=== PATIENT | male | born 1980 | race African-American/Black ===

== ENCOUNTER 2016-12-04 10:03 | Emergency (ER) | payer MEDICARE, MEDICAID ==
[~2016-12-04] VITALS: Ht 170.2 cm; Wt 95.0 kg
[2016-12-04] MEDS ORDERED: RISP4 PO (10:11)
[2016-12-04] MEDS ORDERED: BENZ1TAB10 PO (10:11)
[2016-12-04] MEDS ORDERED: QUET200T PO (10:11)
[2016-12-04] MEDS ORDERED: QUEtiapine FUMARATE 100 MG TABLET PO ONE (12:00)
[2016-12-04] MEDS ORDERED: BENZTROPINE MESYLATE 1 MG TABLET PO ONE (12:00)
[2016-12-04] MEDS ORDERED: RisperiDONE 1 MG TABLET PO ONE (12:00)
[2016-12-04 12:20] VITALS: BP 147/90
== END 2016-12-04 13:25 | disposition home or self-care (01) ==
LOC: EMS 10:06
DX: Z76.0 Encounter for issue of repeat prescription (principal); F20.9 Schizophrenia, unspecified; F17.210 Nicotine dependence, cigarettes, uncomplicated
CPT/HCPCS: 99284

== ENCOUNTER 2016-12-23 15:45 | Inpatient (IN) | payer MEDICARE, MEDICAID ==
[~2016-12-23] VITALS: Ht 170.2 cm; Wt 91.6 kg
[~2016-12-23 15:45] MED LIST: BENZ1TAB10 PO; QUET200T PO; RISP4 PO
[2016-12-23 20:17] VITALS: BP 127/87
[2016-12-23 21:31] VITALS: BP 132/91
[2016-12-24 05:34] VITALS: BP 110/75
[2016-12-24 08:00] VITALS: BP 117/77
[2016-12-24 08:45] LABS: BASOPHILS % (AUTO) 0.4 % (0.0-2.0); EOSINOPHILS % (AUTO) 1.2 % (1.0-6.0); HEMATOCRIT 39.7 % (41-53); HEMOGLOBIN 13.5 g/dL (13.5-17.5); LYMPHOCYTES # (AUTO) 1.7 K/uL (1.0-4.8); LYMPHOCYTES % (AUTO) 20.6 % (22.0-44.0); MEAN CORPUSCULAR HEMOGLOBIN 29.4 pg (26.0-34.0); MEAN CORPUSCULAR HGB CONC 34.1 G/dL (31.0-37.0); MEAN CORPUSCULAR VOLUME 86 fL (80-100); MONOCYTES # (AUTO) 0.5 K/uL (0.1-1.0); NEUTROPHILS % (AUTO) 71.8 % (40.0-70.0); PLATELET COUNT (AUTO) 248 K/uL (150-450); RED CELL DISTRIBUTION WIDTH 14.1 % (11.5-14.5); WHITE BLOOD COUNT (AUTO) 8.4 K/uL (4.5-11.0)
[2016-12-24 08:50] LABS: HEMOGLOBIN A1C 5.4 % (4.5-6.2)
[2016-12-24 09:05] LABS: ALANINE AMINOTRANSFERASE 53 U/L (12-78); ALBUMIN 3.9 g/dL (3.4-5.0); ANION GAP 10 mmol/L (8-16); ASPARTATE AMINOTRANSFERASE 35 U/L (15-37); BILIRUBIN,TOTAL 0.4 mg/dL (0.1-1.0); CARBON DIOXIDE 25 mmol/L (22-29); CHLORIDE 108 mmol/L (98-107); CHOL/HDL RATIO 6.3 (4.2-7.3); CREATININE 0.96 mg/dL (0.60-1.30); GLOMERULAR FILTR. RATE CALC > 60 mL/min (>60); POTASSIUM 4.4 mmol/L (3.5-5.1); SODIUM SERUM 143 mmol/L (136-145); THYROID STIMULATING HORMONE 0.45 uIU/mL (0.36-3.74); TOTAL PROTEIN, SERUM 6.9 g/dL (6.4-8.2); UREA NITROGEN, BLOOD 11 mg/dL (7-18)
[2016-12-24 16:00] VITALS: BP 130/88
[2016-12-24] MEDS: LORazepam 2 MG TABLET PO PRN (17:56)
[2016-12-24] MEDS: ZOLPIDEM TARTRATE 10 MG TABLET PO PRN (20:24)
[2016-12-24] MEDS: RisperiDONE 0.5 MG TABLET PO SCH (20:48)
[2016-12-25 06:29] VITALS: BP 132/79
[2016-12-25] MEDS: RisperiDONE 0.5 MG TABLET PO SCH ×2 (08:26→16:13)
[2016-12-25] MEDS: LORazepam 2 MG TABLET PO PRN ×4 (08:26→20:28)
[2016-12-25 08:36] VITALS: BP 135/82
[2016-12-25 09:41] LABS: HEMOGLOBIN A1C 5.3 % (4.5-6.2)
[2016-12-25 09:42] LABS: CHOL/HDL RATIO 5.7 (4.2-7.3); THYROID STIMULATING HORMONE 1.34 uIU/mL (0.36-3.74)
[2016-12-25 16:00] VITALS: BP 138/88
[2016-12-25] MEDS: ZOLPIDEM TARTRATE 10 MG TABLET PO PRN (20:28)
[2016-12-26 06:41] VITALS: BP 122/78
[2016-12-26 07:55] LABS: HEPATITIS Bs ANTIGEN SCREEN P Negative (Negative); HEPATITIS C AB SCREEN <0.1 s/co ratio (0.0-0.9)
[2016-12-26] MEDS ORDERED: LORazepam 2 MG/ML VIAL IM ONE (08:00)
[2016-12-26] MEDS ORDERED: DiphenhydrAMINE HCL 50 MG/ML VIAL IM ONE (08:00)
[2016-12-26] MEDS ORDERED: HALOPERIDOL LACTATE 5 MG/ML VIAL IM ONE (08:00)
[2016-12-26] MEDS ORDERED: HALOPERIDOL LACTATE 5 MG/ML VIAL ONE (08:01)
[2016-12-26] MEDS ORDERED: LORazepam 2 MG/ML VIAL ONE (08:01)
[2016-12-26] MEDS ORDERED: DiphenhydrAMINE HCL 50 MG/ML VIAL ONE (08:01)
[2016-12-26 08:30] VITALS: BP 137/72
[2016-12-26] MEDS ORDERED: RisperiDONE 1 MG TABLET PO SCH (09:00)
[2016-12-26] MEDS: HALOPERIDOL 5 MG TABLET PO SCH (16:29)
[2016-12-26] MEDS: LORazepam 2 MG TABLET PO PRN (20:40)
[2016-12-26] MEDS: NICOTINE 14 MG/24 HOUR PATCH TD SCH (20:41)
[2016-12-26] MEDS: ZOLPIDEM TARTRATE 10 MG TABLET PO PRN (20:42)
[2016-12-26 20:49] VITALS: BP 128/85
[2016-12-27 08:00] VITALS: BP 143/62
[2016-12-27] MEDS: NICOTINE 14 MG/24 HOUR PATCH TD SCH (08:18)
[2016-12-27] MEDS: LORazepam 2 MG TABLET PO PRN (08:19)
[2016-12-27] MEDS: HALOPERIDOL 5 MG TABLET PO SCH ×2 (08:19→16:07)
[2016-12-27 17:12] VITALS: BP 120/63
[2016-12-27] MEDS: ZOLPIDEM TARTRATE 10 MG TABLET PO PRN (21:20)
[2016-12-28] MEDS: LORazepam 2 MG TABLET PO PRN ×3 (02:30→17:08)
[2016-12-28 03:07] VITALS: BP 124/74
[2016-12-28 08:10] VITALS: BP 143/70
[2016-12-28] MEDS: NICOTINE 14 MG/24 HOUR PATCH TD SCH (09:20)
[2016-12-28] MEDS: HALOPERIDOL 5 MG TABLET PO SCH (09:20)
[2016-12-28] MEDS: HALOPERIDOL 10 MG TABLET PO SCH (16:24)
[2016-12-28 16:31] VITALS: BP 117/68
[2016-12-29] MEDS: ZOLPIDEM TARTRATE 10 MG TABLET PO PRN ×2 (00:46→20:06)
[2016-12-29 01:02] VITALS: BP 131/86
[2016-12-29 08:05] VITALS: BP 122/79
[2016-12-29] MEDS: LORazepam 2 MG TABLET PO PRN ×2 (08:16→23:40)
[2016-12-29] MEDS: NICOTINE 14 MG/24 HOUR PATCH TD SCH (08:16)
[2016-12-29] MEDS: HALOPERIDOL 10 MG TABLET PO SCH ×2 (08:17→16:21)
[2016-12-29 19:57] VITALS: BP 115/68
[2016-12-29 23:30] VITALS: BP 129/67
[2016-12-30 08:00] VITALS: BP 101/64
[2016-12-30] MEDS: HALOPERIDOL 10 MG TABLET PO SCH ×2 (09:04→17:35)
[2016-12-30] MEDS: NICOTINE 14 MG/24 HOUR PATCH TD SCH (09:04)
[2016-12-30] MEDS ORDERED: GuaiFENesin [SUGAR-FREE] 200 MG/10 ML SOLUTION UDCUP PO PRN (09:15)
[2016-12-30 16:49] VITALS: BP 140/87
[2016-12-30] MEDS: DIVALPROEX SODIUM 500 MG ER TABLET PO SCH (17:34)
[2016-12-30] MEDS: LORazepam 2 MG TABLET PO PRN (17:35)
[2016-12-31 07:12] LABS: BASOPHILS # (AUTO) 0.06 K/uL (0.00-0.20); BASOPHILS % (AUTO) 0.9 % (0.0-2.0); EOSINOPHILS # (AUTO) 0.19 K/uL (0.00-0.70); EOSINOPHILS % (AUTO) 2.72 % (1.0-6.0); HEMATOCRIT 39.5 % (41-53); HEMOGLOBIN 13.7 g/dL (13.5-17.5); LYMPHOCYTES # (AUTO) 1.8 K/uL (1.0-4.8); LYMPHOCYTES % (AUTO) 25.8 % (22.0-44.0); MEAN CORPUSCULAR HEMOGLOBIN 29.5 pg (26.0-34.0); MEAN CORPUSCULAR HGB CONC 34.6 G/dL (31.0-37.0); MEAN CORPUSCULAR VOLUME 85 fL (80-100); MONOCYTES # (AUTO) 1.1 K/uL (0.1-1.0); MONOCYTES % (AUTO) 16.1 % (2.0-9.0); NEUTROPHILS # (AUTO) 3.8 K/uL (1.8-7.7); NEUTROPHILS % (AUTO) 54.5 % (40.0-70.0); PLATELET COUNT (AUTO) 223 K/uL (150-450); RED BLOOD CELL COUNT(AUTO) 4.63 MIL/uL (4.50-5.90); RED CELL DISTRIBUTION WIDTH 13.6 % (11.5-14.5); WHITE BLOOD COUNT (AUTO) 6.9 K/uL (4.5-11.0)
[2016-12-31 07:33] LABS: ALANINE AMINOTRANSFERASE 40 U/L (12-78); ALBUMIN 3.4 g/dL (3.4-5.0); ANION GAP 6 mmol/L (8-16); ASPARTATE AMINOTRANSFERASE 21 U/L (15-37); BILIRUBIN,TOTAL 0.2 mg/dL (0.1-1.0); CALCIUM, TOTAL 8.9 mg/dL (8.8-10.5); CARBON DIOXIDE 29 mmol/L (22-29); CHLORIDE 105 mmol/L (98-107); GLOMERULAR FILTR. RATE CALC > 60 mL/min (>60); POTASSIUM 4.3 mmol/L (3.5-5.1); SODIUM SERUM 140 mmol/L (136-145); UREA NITROGEN, BLOOD 9 mg/dL (7-18); VALPROIC ACID 21 mcg/mL (50-100)
[2016-12-31 08:00] VITALS: BP 126/81
[2016-12-31] MEDS: NICOTINE 14 MG/24 HOUR PATCH TD SCH (08:15)
[2016-12-31] MEDS: DIVALPROEX SODIUM 500 MG ER TABLET PO SCH ×2 (08:15→16:23)
[2016-12-31] MEDS: HALOPERIDOL 10 MG TABLET PO SCH ×2 (08:15→16:23)
[2016-12-31 16:43] VITALS: BP 120/72
[2016-12-31] MEDS: LORazepam 2 MG TABLET PO PRN (19:21)
[2016-12-31] MEDS: ZOLPIDEM TARTRATE 10 MG TABLET PO PRN (20:27)
[2017-01-01 08:00] VITALS: BP 124/87
[2017-01-01] MEDS: HALOPERIDOL 10 MG TABLET PO SCH ×2 (08:37→16:20)
[2017-01-01] MEDS: DIVALPROEX SODIUM 500 MG ER TABLET PO SCH ×2 (08:38→16:20)
[2017-01-01] MEDS: NICOTINE 14 MG/24 HOUR PATCH TD SCH (08:38)
[2017-01-01] MEDS: LORazepam 2 MG TABLET PO PRN (12:19)
[2017-01-01] MEDS: ZOLPIDEM TARTRATE 10 MG TABLET PO PRN (21:03)
[2017-01-02] MEDS: LORazepam 2 MG TABLET PO PRN ×3 (03:45→17:44)
[2017-01-02 05:00] VITALS: BP 128/84
[2017-01-02 07:21] LABS: CREATINE KINASE MB 0.9 ng/mL (0-5); CREATINE KINASE, TOTAL 322 U/L (39-308)
[2017-01-02 09:00] VITALS: BP 119/82
[2017-01-02] MEDS: HALOPERIDOL 10 MG TABLET PO SCH ×2 (09:25→17:44)
[2017-01-02] MEDS: DIVALPROEX SODIUM 500 MG ER TABLET PO SCH ×2 (09:25→17:44)
[2017-01-02] MEDS: NICOTINE 14 MG/24 HOUR PATCH TD SCH (09:25)
[2017-01-02 16:00] VITALS: BP 143/63
[2017-01-02] MEDS: ZOLPIDEM TARTRATE 10 MG TABLET PO PRN (21:55)
[2017-01-03] MEDS: HALOPERIDOL 10 MG TABLET PO SCH ×2 (08:07→16:53)
[2017-01-03] MEDS: LORazepam 2 MG TABLET PO PRN ×2 (08:07→16:53)
[2017-01-03] MEDS: DIVALPROEX SODIUM 500 MG ER TABLET PO SCH ×2 (08:07→16:52)
[2017-01-03] MEDS: NICOTINE 14 MG/24 HOUR PATCH TD SCH (08:08)
[2017-01-03 08:30] VITALS: BP 96/53
[2017-01-03 16:00] VITALS: BP 124/90
[2017-01-03] MEDS: ZOLPIDEM TARTRATE 10 MG TABLET PO PRN (21:10)
[2017-01-04] MEDS: LORazepam 2 MG TABLET PO PRN ×2 (03:01→15:41)
[2017-01-04] MEDS: HALOPERIDOL 10 MG TABLET PO SCH ×2 (08:20→16:28)
[2017-01-04] MEDS: DIVALPROEX SODIUM 500 MG ER TABLET PO SCH ×2 (08:20→16:28)
[2017-01-04] MEDS: NICOTINE 14 MG/24 HOUR PATCH TD SCH (09:00)
[2017-01-04 09:09] VITALS: BP 124/90
[2017-01-04] MEDS ORDERED: DIVA500T52 PO (16:18)
[2017-01-04] MEDS ORDERED: HALO10 PO (16:19)
[2017-01-04 16:32] VITALS: BP 119/79
== END 2017-01-04 17:30 | disposition home or self-care (01) | DRG 885 ==
LOC: B3A 20:07 → 3EC 12-26 09:55
PROVIDERS: ADMIT Psychiatry & Neurology Psychiatry; ATTEND Psychiatry & Neurology Psychiatry
DX: F25.0 Schizoaffective disorder, bipolar type (principal); M62.82 Rhabdomyolysis; E55.9 Vitamin D deficiency, unspecified; E78.5 Hyperlipidemia, unspecified; F10.10 Alcohol abuse, uncomplicated; F41.9 Anxiety disorder, unspecified; Z91.14 Patient's other noncompliance with medication regimen; S80.212A Abrasion, left knee, initial encounter; S80.211A Abrasion, right knee, initial encounter; X58.XXXA Exposure to other specified factors, initial encounter; Y93.89 Activity, other specified; Y92.89 Other specified places as the place of occurrence of the external cause; Y99.8 Other external cause status; F17.200 Nicotine dependence, unspecified, uncomplicated; Y90.9 Presence of alcohol in blood, level not specified; R05 Cough
CPT/HCPCS: 80074; 82306; 82607; 82746; 83036; 83540; 83550; 83735; 84439; 84443; 86592; 87081; 87389; J1200; J1630; J2060

== ENCOUNTER 2019-03-31 10:57 | Emergency (ER) | payer MEDICARE, MEDICAID ==
[~2019-03-31] VITALS: Ht 177.8 cm; Wt 90.9 kg
[~2019-03-31 10:57] MED LIST changes: -BENZ1TAB10 PO; +DIVA500T52 PO; +HALO10 PO; -QUET200T PO; -RISP4 PO
[2019-03-31] MEDS ORDERED: BENZ0.5T44 PO (11:06)
[2019-03-31] MEDS ORDERED: RISP.5 PO (11:06)
[2019-03-31 11:58] LABS: BASOPHILS % (AUTO) 0.8 % (0.0-2.0); EOSINOPHILS % (AUTO) 0.6 % (1.0-6.0); HEMATOCRIT 40.2 % (41-53); HEMOGLOBIN 13.8 g/dL (13.5-17.5); LYMPHOCYTES # (AUTO) 1.8 K/uL (1.0-4.8); LYMPHOCYTES % (AUTO) 24.9 % (22.0-44.0); MEAN CORPUSCULAR HEMOGLOBIN 30.7 pg (26.0-34.0); MEAN CORPUSCULAR HGB CONC 34.3 G/dL (31.0-37.0); MEAN CORPUSCULAR VOLUME 90 fL (80-100); MONOCYTES # (AUTO) 0.8 K/uL (0.1-1.0); MONOCYTES % (AUTO) 11.8 % (2.0-9.0); NEUTROPHILS # (AUTO) 4.4 K/uL (1.8-7.7); NEUTROPHILS % (AUTO) 61.9 % (40.0-70.0); PLATELET COUNT (AUTO) 225 K/uL (150-450); RED BLOOD CELL COUNT(AUTO) 4.48 MIL/uL (4.50-5.90); RED CELL DISTRIBUTION WIDTH 13.6 % (11.5-14.5)
[2019-03-31 12:08] LABS: ANION GAP 8 mmol/L (8-16); CARBON DIOXIDE 25 mmol/L (22-29); CHLORIDE 106 mmol/L (98-107); CREATININE 0.99 mg/dL (0.60-1.30); GLOMERULAR FILTR. RATE CALC > 60 mL/min (>60); GLUCOSE,RANDOM 98 mg/dL (70-110); POTASSIUM 4.4 mmol/L (3.5-5.1); SODIUM SERUM 139 mmol/L (136-145); UREA NITROGEN, BLOOD 10 mg/dL (7-18)
[2019-03-31 12:17] LABS: ALANINE AMINOTRANSFERASE 47 U/L (12-78); ALBUMIN 3.8 g/dL (3.4-5.0); ALKALINE PHOSPHATASE 70 U/L (46-116); ASPARTATE AMINOTRANSFERASE 35 U/L (15-37); BILIRUBIN,TOTAL 0.2 mg/dL (0.1-1.0); TOTAL PROTEIN, SERUM 7.3 g/dL (6.4-8.2)
[2019-03-31] MEDS ORDERED: AMOXICILLIN TRIHYDRATE 250 MG/5 ML SUSPENSION ORAL.SYG PO ONE (12:45)
[2019-03-31 13:30] VITALS: BP 175/118
== END 2019-03-31 13:36 | disposition home or self-care (01) ==
LOC: EMS 11:00
DX: J18.9 Pneumonia, unspecified organism (principal); F17.210 Nicotine dependence, cigarettes, uncomplicated; F20.9 Schizophrenia, unspecified
CPT/HCPCS: 85379; 93005; 99406

== ENCOUNTER 2019-04-24 13:22 | Emergency (ER) | payer MEDICARE, MEDICAID ==
[~2019-04-24] VITALS: Ht 153 cm; Wt 95.5 kg
[~2019-04-24 13:22] MED LIST changes: +BENZ0.5T44 PO; +RISP.5 PO
[2019-04-24 15:49] VITALS: BP 144/107
== END 2019-04-24 15:58 | disposition home or self-care (01) ==
LOC: EMS 13:25
DX: R06.02 Shortness of breath (principal); F20.9 Schizophrenia, unspecified; F17.210 Nicotine dependence, cigarettes, uncomplicated
CPT/HCPCS: 99406

== ENCOUNTER 2019-05-01 13:49 | Emergency (ER) | payer MEDICARE, MEDICAID ==
[~2019-05-01] VITALS: Ht 170.2 cm; Wt 100.0 kg
[2019-05-01 15:59] LABS: EOSINOPHILS % (AUTO) 0.6 % (1.0-6.0); HEMATOCRIT 38.5 % (41-53); HEMOGLOBIN 13.4 g/dL (13.5-17.5); LYMPHOCYTES # (AUTO) 1.7 K/uL (1.0-4.8); LYMPHOCYTES % (AUTO) 19.4 % (22.0-44.0); MEAN CORPUSCULAR HEMOGLOBIN 30.9 pg (26.0-34.0); MEAN CORPUSCULAR HGB CONC 34.9 G/dL (31.0-37.0); MEAN CORPUSCULAR VOLUME 89 fL (80-100); MONOCYTES # (AUTO) 0.9 K/uL (0.1-1.0); MONOCYTES % (AUTO) 9.9 % (2.0-9.0); NEUTROPHILS # (AUTO) 6.2 K/uL (1.8-7.7); NEUTROPHILS % (AUTO) 69.1 % (40.0-70.0); PLATELET COUNT (AUTO) 231 K/uL (150-450); RED BLOOD CELL COUNT(AUTO) 4.35 MIL/uL (4.50-5.90); RED CELL DISTRIBUTION WIDTH 13.5 % (11.5-14.5)
[2019-05-01] MEDS ORDERED: VALP250S4 PO (16:08)
[2019-05-01] MEDS ORDERED: CLON0.2T PO (16:08)
[2019-05-01 16:16] LABS: ANION GAP 7 mmol/L (8-16); CALCIUM, TOTAL 8.8 mg/dL (8.8-10.5); CARBON DIOXIDE 28 mmol/L (22-29); CHLORIDE 101 mmol/L (98-107); CREATININE 1.37 mg/dL (0.60-1.30); GLOMERULAR FILTR. RATE CALC > 60 mL/min (>60); GLUCOSE,RANDOM 102 mg/dL (70-110); POTASSIUM 3.6 mmol/L (3.5-5.1); SODIUM SERUM 136 mmol/L (136-145); UREA NITROGEN, BLOOD 10 mg/dL (7-18)
[2019-05-01 16:29] LABS: ALANINE AMINOTRANSFERASE 57 U/L (12-78); ALBUMIN 3.5 g/dL (3.4-5.0); ALKALINE PHOSPHATASE 77 U/L (46-116); ASPARTATE AMINOTRANSFERASE 41 U/L (15-37); BILIRUBIN,TOTAL 0.3 mg/dL (0.1-1.0)
[2019-05-01 17:34] VITALS: BP 150/72
== END 2019-05-01 17:50 | disposition home or self-care (01) ==
LOC: EMS 13:53
DX: F20.9 Schizophrenia, unspecified (principal); F17.210 Nicotine dependence, cigarettes, uncomplicated
CPT/HCPCS: 80053; 85025; 99285; 99406; G0480

== ENCOUNTER 2019-09-25 16:19 | Emergency (ER) | payer MEDICARE, MEDICAID ==
[~2019-09-25] VITALS: Ht 167.6 cm; Wt 95.5 kg
[~2019-09-25 16:19] MED LIST changes: +CLON0.2T PO; -DIVA500T52 PO; -HALO10 PO; -RISP.5 PO; +RISP0.5T20 PO; +VALP250S4 PO
[2019-09-25] MEDS ORDERED: ATOR10TA84 PO (16:42)
[2019-09-25 18:33] VITALS: BP 130/74
== END 2019-09-25 18:35 | disposition home or self-care (01) ==
LOC: EMS 16:19
DX: J02.9 Acute pharyngitis, unspecified (principal)

== ENCOUNTER 2020-04-09 03:30 | Emergency (ER) | payer MEDICARE, MEDICAID ==
[~2020-04-09] VITALS: Ht 170.2 cm; Wt 84.1 kg
[~2020-04-09 03:30] MED LIST changes: +ATOR10TA84 PO; -BENZ0.5T44 PO; +BENZ1TAB10 PO; -CLON0.2T PO; +DIVA-112 PO; -RISP0.5T20 PO; +RISP3TAB35 PO; -VALP250S4 PO
[2020-04-09 05:23] VITALS: BP 111/50
== END 2020-04-09 05:45 | disposition home or self-care (01) ==
LOC: EMS 03:31
DX: F20.9 Schizophrenia, unspecified (principal); F31.9 Bipolar disorder, unspecified; F17.210 Nicotine dependence, cigarettes, uncomplicated
CPT/HCPCS: Z7502

== ENCOUNTER 2020-04-10 12:12 | Inpatient (IN) | payer MEDICARE, MEDICAID ==
[~2020-04-10] VITALS: Ht 170.2 cm; Wt 93.4 kg
[2020-04-10 14:10] LABS: BASOPHILS % (AUTO) 0.6 % (0.0-2.0); HEMATOCRIT 37.9 % (41-53); HEMOGLOBIN 12.7 g/dL (13.5-17.5); LYMPHOCYTES # (AUTO) 1.8 K/uL (1.0-4.8); LYMPHOCYTES % (AUTO) 21.6 % (22.0-44.0); MEAN CORPUSCULAR HEMOGLOBIN 29.4 pg (26.0-34.0); MEAN CORPUSCULAR HGB CONC 33.5 G/dL (31.0-37.0); MEAN CORPUSCULAR VOLUME 88 fL (80-100); MONOCYTES # (AUTO) 0.6 K/uL (0.1-1.0); MONOCYTES % (AUTO) 7.5 % (2.0-9.0); NEUTROPHILS # (AUTO) 5.8 K/uL (1.8-7.7); NEUTROPHILS % (AUTO) 69.3 % (40.0-70.0); PLATELET COUNT (AUTO) 223 K/uL (150-450); RED BLOOD CELL COUNT(AUTO) 4.32 MIL/uL (4.50-5.90); RED CELL DISTRIBUTION WIDTH 13.2 % (11.5-14.5)
[2020-04-10] MEDS ORDERED: LORazepam 2 MG/ML VIAL IM ONE (14:15)
[2020-04-10] MEDS ORDERED: DiphenhydrAMINE HCL 50 MG/ML VIAL IM ONE (14:15)
[2020-04-10] MEDS ORDERED: HALOPERIDOL LACTATE 5 MG/ML VIAL IM ONE (14:15)
[2020-04-10 14:25] LABS: INR 1.1 (0.9-1.1); PROTHROMBIN TIME 11.6 SEC (9.4-11.6)
[2020-04-10 14:31] LABS: ANION GAP 11 mmol/L (8-16); B-TYPE NATRIURETIC PEPTIDE 19 pg/mL (0-100); CALCIUM, TOTAL 8.9 mg/dL (8.8-10.5); CARBON DIOXIDE 25 mmol/L (22-29); CHLORIDE 107 mmol/L (98-107); CREATININE 1.11 mg/dL (0.60-1.30); GLOMERULAR FILTR. RATE CALC > 60 mL/min (>60); GLUCOSE,RANDOM 91 mg/dL (70-110); POTASSIUM 3.9 mmol/L (3.5-5.1); SODIUM SERUM 143 mmol/L (136-145); UREA NITROGEN, BLOOD 8 mg/dL (7-18)
[2020-04-10 15:07] LABS: ALANINE AMINOTRANSFERASE 44 U/L (12-78); ALBUMIN 3.7 g/dL (3.4-5.0); ALKALINE PHOSPHATASE 64 U/L (46-116); ASPARTATE AMINOTRANSFERASE 67 U/L (15-37); BILIRUBIN,TOTAL 0.5 mg/dL (0.1-1.0)
[2020-04-10 15:08] LABS: CREATINE KINASE, TOTAL ONLY 3632 U/L (39-308)
[2020-04-10] MEDS ORDERED: SODIUM CHLORIDE 0.9% 1,000 ML IV ONE (15:45)
[2020-04-10 16:04] LABS: COVID AG,FIA SOURCE NASOPHARYNGEAL
[2020-04-11] MEDS ORDERED: ZOLPIDEM TARTRATE 10 MG TABLET PO PRN (01:00)
[2020-04-11 01:06] VITALS: BP 129/89
[2020-04-11] MEDS ORDERED: INFLUENZA VIRUS VACCINE QVS 2020-21 (6MO+)/PF 60 MCG/0.5 ML SYRINGE IM ONE (02:30)
[2020-04-11] MEDS ORDERED: ACETAMINOPHEN 325 MG TABLET PO PRN (06:30)
[2020-04-11] MEDS ORDERED: CloNIDine HCL 0.1 MG TABLET PO PRN (06:30)
[2020-04-11] MEDS ORDERED: MAGNESIUM HYDROXIDE SUSPENSION 30 ML UDCUP PO PRN (06:30)
[2020-04-11] MEDS ORDERED: BENZOCAINE/MENTHOL LOZENGE PO PRN (06:30)
[2020-04-11] MEDS ORDERED: BACITRACIN 28 GM OINTMENT TP PRN (06:30)
[2020-04-11] MEDS ORDERED: MAG HYDROX/AL HYDROX/SIMETH ES 30 ML SUSPENSION UDCUP PO PRN (06:30)
[2020-04-11] MEDS ORDERED: OMEPRAZOLE 20 MG CAPSULE PO PRN (06:30)
[2020-04-11] MEDS ORDERED: ONDANSETRON HCL 4 MG TABLET PO PRN (06:30)
[2020-04-11] MEDS ORDERED: IBUPROFEN 600 MG TABLET PO PRN (06:30)
[2020-04-11] MEDS ORDERED: PETROLATUM,WHITE 28 GM JELLY TP PRN (06:30)
[2020-04-11] MEDS ORDERED: LOPERAMIDE HCL 2 MG CAPSULE PO PRN (06:30)
[2020-04-11] MEDS ORDERED: DOCUSATE SODIUM 100 MG CAPSULE PO PRN (06:30)
[2020-04-11] MEDS ORDERED: ALBUTEROL SULFATE HFA 90 MCG/PUFF 8 GM INHALER IH PRN (06:30)
[2020-04-11 08:30] VITALS: BP 125/85
[2020-04-11] MEDS: DIVALPROEX SODIUM 500 MG DR TABLET PO SCH ×2 (10:50→16:28)
[2020-04-11] MEDS: BENZTROPINE MESYLATE 1 MG TABLET PO SCH ×2 (10:50→16:29)
[2020-04-11] MEDS: RisperiDONE 3 MG TABLET PO SCH ×2 (10:50→16:28)
[2020-04-11 16:17] VITALS: BP 152/96
[2020-04-11 16:38] VITALS: BP 135/84
[2020-04-11 23:32] LABS: APPEARANCE,URINE CLEAR (CLEAR); BILIRUBIN,URINE NEGATIVE (NEGATIVE); GLUCOSE, URINE (UA) NEGATIVE (NEGATIVE); KETONES,URINE TRACE mg/dL (NEGATIVE); LEUKOCYTE ESTERASE ,URINE NEGATIVE (NEGATIVE); NITRATE,URINE NEGATIVE (NEGATIVE); OCCULT BLOOD,URINE NEGATIVE (NEGATIVE); PROTEIN,URINE NEGATIVE (NEGATIVE); UROBILINOGEN,URINE 0.2 mg/dL (<=1.0)
[2020-04-11 23:33] LABS: AMPHET/METH SCREEN,URINE NEGATIVE (NEGATIVE); BARBITURATE SCREEN, URINE NEGATIVE (NEGATIVE); BENZODIAZEPINES SCREEN,URINE NEGATIVE (NEGATIVE); CANNABINOID SCREEN,URINE NEGATIVE (NEGATIVE); COCAINE SCREEN,URINE NEGATIVE (NEGATIVE); METHADONE SCREEN, URINE NEGATIVE (NEGATIVE); OPIATE SCREEN,URINE NEGATIVE (NEGATIVE)
[2020-04-11 23:41] LABS: PHENCYCLIDINE SCREEN,URINE NEGATIVE (NEGATIVE)
[2020-04-12] MEDS: HALOPERIDOL 5 MG TABLET PO PRN (07:56)
[2020-04-12] MEDS: LORazepam 2 MG TABLET PO PRN (07:56)
[2020-04-12 08:00] VITALS: BP 125/74
[2020-04-12] MEDS: DIVALPROEX SODIUM 500 MG DR TABLET PO SCH ×2 (08:49→16:07)
[2020-04-12] MEDS: BENZTROPINE MESYLATE 1 MG TABLET PO SCH ×2 (08:49→16:07)
[2020-04-12] MEDS: RisperiDONE 3 MG TABLET PO SCH ×2 (08:49→16:07)
[2020-04-12 16:13] VITALS: BP 133/92
[2020-04-13 08:00] VITALS: BP 109/74
[2020-04-13] MEDS: DIVALPROEX SODIUM 500 MG DR TABLET PO SCH ×2 (08:07→16:18)
[2020-04-13] MEDS: RisperiDONE 3 MG TABLET PO SCH ×2 (08:07→16:18)
[2020-04-13] MEDS: BENZTROPINE MESYLATE 1 MG TABLET PO SCH ×2 (08:07→16:18)
[2020-04-13] MEDS: LORazepam 2 MG TABLET PO PRN ×2 (08:08→16:58)
[2020-04-13] MEDS: HALOPERIDOL 5 MG TABLET PO PRN ×2 (09:02→16:58)
[2020-04-13 16:00] VITALS: BP 146/87
[2020-04-14] MEDS: HALOPERIDOL 5 MG TABLET PO PRN (07:50)
[2020-04-14] MEDS: LORazepam 2 MG TABLET PO PRN (07:50)
[2020-04-14 08:00] VITALS: BP 118/93
[2020-04-14] MEDS: RisperiDONE 3 MG TABLET PO SCH ×2 (08:21→16:54)
[2020-04-14] MEDS: BENZTROPINE MESYLATE 1 MG TABLET PO SCH ×2 (08:21→16:54)
[2020-04-14] MEDS: DIVALPROEX SODIUM 500 MG DR TABLET PO SCH ×2 (08:21→16:53)
[2020-04-14 16:00] VITALS: BP 132/80
[2020-04-15] MEDS: HALOPERIDOL 5 MG TABLET PO PRN ×2 (07:51→17:42)
[2020-04-15] MEDS: LORazepam 2 MG TABLET PO PRN ×3 (07:51→20:16)
[2020-04-15] MEDS: DIVALPROEX SODIUM 500 MG DR TABLET PO SCH ×2 (08:00→15:58)
[2020-04-15] MEDS: BENZTROPINE MESYLATE 1 MG TABLET PO SCH ×2 (08:00→15:58)
[2020-04-15] MEDS: RisperiDONE 3 MG TABLET PO SCH ×2 (08:00→15:58)
[2020-04-15 08:08] VITALS: BP 122/74
[2020-04-15 16:13] VITALS: BP 136/78
[2020-04-16 08:00] VITALS: BP 123/92
[2020-04-16] MEDS: LORazepam 2 MG TABLET PO PRN (08:30)
[2020-04-16] MEDS: DIVALPROEX SODIUM 500 MG DR TABLET PO SCH (08:30)
[2020-04-16] MEDS: RisperiDONE 3 MG TABLET PO SCH ×2 (08:30→16:45)
[2020-04-16] MEDS: HALOPERIDOL 5 MG TABLET PO PRN (08:30)
[2020-04-16] MEDS: BENZTROPINE MESYLATE 1 MG TABLET PO SCH ×2 (08:30→16:45)
[2020-04-16 16:02] VITALS: BP 138/82
[2020-04-16 19:31] LABS: COVID AG,FIA SOURCE NASOPHARYNGEAL
[2020-04-16] MEDS ORDERED: DIVALPROEX SODIUM 500 MG DR TABLET PO SCH (21:00)
[2020-04-16] MEDS ORDERED: HALOPERIDOL 5 MG TABLET PO SCH (21:00)
[2020-04-17] MEDS ORDERED: DIVALPROEX SODIUM 500 MG DR TABLET PO SCH (09:00)
[2020-04-17] MEDS ORDERED: RisperiDONE 4 MG TABLET PO SCH (09:00)
== END 2020-04-16 21:23 | disposition home or self-care (01) | DRG 885 ==
LOC: EMS 12:22 → 3EC 22:51
PROVIDERS: ADMIT Psychiatry & Neurology Psychiatry; ATTEND Psychiatry & Neurology Psychiatry
DX: F25.9 Schizoaffective disorder, unspecified (principal); U07.1 COVID-19; M62.82 Rhabdomyolysis; R45.851 Suicidal ideations; E78.5 Hyperlipidemia, unspecified; F17.210 Nicotine dependence, cigarettes, uncomplicated; K21.9 Gastro-esophageal reflux disease without esophagitis; K59.00 Constipation, unspecified; E66.9 Obesity, unspecified; R74.8 Abnormal levels of other serum enzymes; Z68.32 Body mass index [BMI] 32.0-32.9, adult
CPT/HCPCS: 87426; 93005; G0480; J1200; J1630; J2060; 36415-L1; 36415-TC; 71045-TC; 81003-TC

== ENCOUNTER 2020-05-03 12:43 | Emergency (ER) | payer MEDICARE, MEDICAID ==
[~2020-05-03] VITALS: Ht 170.2 cm; Wt 77.3 kg
[2020-05-03 12:53] VITALS: BP 115/61
== END 2020-05-03 14:14 | disposition left against medical advice (07) ==
LOC: EMS 14:07
DX: Z04.6 Encounter for general psychiatric examination, requested by authority (principal); Z53.21 Procedure and treatment not carried out due to patient leaving prior to being seen by health care provider

== ENCOUNTER 2020-08-02 08:36 | Emergency (ER) | payer MEDICARE, MEDICAID ==
[~2020-08-02] VITALS: Ht 175.3 cm; Wt 109.1 kg
[2020-08-02] MEDS: ALBUTEROL SULFATE HFA 90 MCG/PUFF 8 GM INHALER IH ONE (09:11)
[2020-08-02 09:37] VITALS: BP 145/81
== END 2020-08-02 09:39 | disposition home or self-care (01) ==
LOC: EMS 08:36
DX: J45.909 Unspecified asthma, uncomplicated (principal); F25.9 Schizoaffective disorder, unspecified
CPT/HCPCS: 94640; 99283; J3535

== ENCOUNTER 2021-12-10 02:25 | Inpatient (IN) | payer MEDICARE, MEDICAID ==
[~2021-12-10] VITALS: Ht 177.8 cm; Wt 114.0 kg
[2021-12-10 02:53] LABS: BASOPHILS % (AUTO) 0.7 % (0.0-2.0); EOSINOPHILS % (AUTO) 1.2 % (1.0-6.0); HEMOGLOBIN 12.4 g/dL (13.5-17.5); LYMPHOCYTES # (AUTO) 1.8 K/uL (1.0-4.8); LYMPHOCYTES % (AUTO) 15.9 % (22.0-44.0); MEAN CORPUSCULAR HGB CONC 34.4 G/dL (31.0-37.0); MEAN CORPUSCULAR VOLUME 84 fL (80-100); MONOCYTES % (AUTO) 8.4 % (2.0-9.0); NEUTROPHILS # (AUTO) 8.5 K/uL (1.8-7.7); NEUTROPHILS % (AUTO) 73.8 % (40.0-70.0); PLATELET COUNT (AUTO) 196 K/uL (150-450); RED BLOOD CELL COUNT(AUTO) 4.27 MIL/uL (4.50-5.90); RED CELL DISTRIBUTION WIDTH 14.1 % (11.5-14.5)
[2021-12-10] MEDS ORDERED: HALOPERIDOL 5 MG TABLET PO ONE (03:00)
[2021-12-10] MEDS ORDERED: LORazepam 1 MG TABLET PO ONE ×2 (03:00→06:15)
[2021-12-10 03:26] LABS: COVID AG,FIA SOURCE NASOPHARYNGEAL
[2021-12-10 03:29] LABS: ANION GAP 5 mmol/L (8-16); CALCIUM, TOTAL 9.3 mg/dL (8.8-10.5); CARBON DIOXIDE 33 mmol/L (22-29); CHLORIDE 106 mmol/L (98-107); CREATININE 1.26 mg/dL (0.60-1.30); GLUCOSE,RANDOM 106 mg/dL (70-110); POTASSIUM 4.7 mmol/L (3.5-5.1); SODIUM SERUM 144 mmol/L (136-145); UREA NITROGEN, BLOOD 7 mg/dL (7-18)
[2021-12-10 03:34] LABS: GLOMERULAR FILTR. RATE CALC > 60 mL/min (>60)
[2021-12-10 03:35] LABS: ALANINE AMINOTRANSFERASE 38 U/L (12-78); ALBUMIN 3.8 g/dL (3.4-5.0); ALKALINE PHOSPHATASE 80 U/L (46-116); ASPARTATE AMINOTRANSFERASE 26 U/L (15-37); BILIRUBIN,TOTAL 0.5 mg/dL (0.1-1.0); PHOSPHORUS 4.1 mg/dL (2.5-4.9)
[2021-12-10] MEDS ORDERED: ASPIRIN 325 MG TABLET PO ONE (04:30)
[2021-12-10 05:51] LABS: AMPHET/METH SCREEN,URINE NEGATIVE (NEGATIVE); BARBITURATE SCREEN, URINE NEGATIVE (NEGATIVE); BENZODIAZEPINES SCREEN,URINE NEGATIVE (NEGATIVE); CANNABINOID SCREEN,URINE NEGATIVE (NEGATIVE); COCAINE SCREEN,URINE NEGATIVE (NEGATIVE); METHADONE SCREEN, URINE NEGATIVE (NEGATIVE); OPIATE SCREEN,URINE NEGATIVE (NEGATIVE)
[2021-12-10 06:07] LABS: PHENCYCLIDINE SCREEN,URINE NEGATIVE (NEGATIVE)
[2021-12-10] MEDS ORDERED: 0.9% SODIUM CHLORIDE 10 ML SYRINGE IVP PRN (06:30)
[2021-12-10] MEDS ORDERED: ACETAMINOPHEN 325 MG TABLET PO PRN ×2 (06:30→18:45)
[2021-12-10] MEDS ORDERED: ONDANSETRON HCL 4 MG/2 ML VIAL IVP PRN (06:30)
[2021-12-10 11:15] LABS: ABG CARBOXYHEMOGLOBIN 1.1 % (0.0-1.5); ABG METHEMOGLOBIN 0.1 % (0.0-1.5); ABG OXYGEN CONTENT 16.6 mL/dL (15.0-23.0); ABG OXYGEN SATURATION 89.7 % (95.0-98.0); ABG OXYHEMOGLOBIN 88.6 % (94.0-100.0); ABG PCO2 41 mmHg (35-45); ABG PH 7.431 (7.35-7.450); ABG TOTAL HEMOGLOBIN 13.3 G/dL (12.0-18.0); PO2, ARTERIAL BG 56.6 mmHg (88.0-96.0); SOURCE, BLOOD GAS ARTERIAL
[2021-12-10 11:16] LABS: O2 DEVICE,BLOOD GAS CANNULA (ROOM AIR); SITE, BLOOD GAS LFT BRACHIAL
[2021-12-10] MEDS: GuaiFENesin [SUGAR-FREE] 200 MG/10 ML SOLUTION UDCUP PO PRN ×2 (15:13→18:36)
[2021-12-10] MEDS ORDERED: ALBUTEROL SULFATE 5 MG/ML 20 ML NEB SOLN [BULK] NEB ONE (17:45)
[2021-12-10] MEDS ORDERED: IPRATROPIUM BROMIDE 0.5 MG/2.5 ML NEB SOLUTION NEB ONE (17:45)
[2021-12-10] MEDS ORDERED: IPRATROPIUM BROMIDE 0.5 MG/2.5 ML NEB SOLUTION NEB PRN (18:45)
[2021-12-10] MEDS ORDERED: ZOLPIDEM TARTRATE 5 MG TABLET PO PRN (18:45)
[2021-12-10] MEDS ORDERED: HYDROCODONE/ACETAMINOPHEN 5-325 MG TABLET PO PRN (18:45)
[2021-12-10] MEDS ORDERED: BISACODYL 10 MG RECTAL RECTAL SUPPOSITORY PR PRN (18:45)
[2021-12-10] MEDS ORDERED: MAGNESIUM HYDROXIDE SUSPENSION 30 ML UDCUP PO PRN (18:45)
[2021-12-10] MEDS ORDERED: DIVALPROEX SODIUM 500 MG ER TABLET PO ONE (18:45)
[2021-12-10] MEDS: CefTRIAXone 1 GM/DEXTROSE 50 ML IV SCH (19:06)
[2021-12-10] MEDS: AZITHROMYCIN 500 MG/NS 250 ML IV SCH (19:43)
[2021-12-10] MEDS: MORPHINE SULFATE 2 MG/ML SYRINGE IVP PRN (19:43)
[2021-12-10] MEDS ORDERED: RisperiDONE 1 MG TABLET PO SCH (21:00)
[2021-12-10] MEDS: BENZTROPINE MESYLATE 1 MG TABLET PO SCH (21:02)
[2021-12-10] MEDS: CloNIDine HCL 0.1 MG TABLET PO SCH (21:02)
[2021-12-10] MEDS: DOCUSATE SODIUM 100 MG CAPSULE PO SCH (21:02)
[2021-12-10] MEDS: ALBUTEROL SULFATE 2.5 MG/0.5 ML NEB SOLUTION NEB PRN ×2 (21:53→21:54)
[2021-12-10 23:20] VITALS: BP 146/78
[2021-12-10] MEDS: HEPARIN SODIUM,PORCINE 5,000 UNITS/ML VIAL SQ SCH (23:27)
[2021-12-11 05:22] VITALS: BP 114/78
[2021-12-11] MEDS: MORPHINE SULFATE 2 MG/ML SYRINGE IVP PRN (05:59)
[2021-12-11 06:27] LABS: BASOPHILS % (AUTO) 0.5 % (0.0-2.0); EOSINOPHILS % (AUTO) 0.8 % (1.0-6.0); HEMATOCRIT 36.1 % (41-53); HEMOGLOBIN 12.1 g/dL (13.5-17.5); LYMPHOCYTES # (AUTO) 1.7 K/uL (1.0-4.8); LYMPHOCYTES % (AUTO) 14.5 % (22.0-44.0); MEAN CORPUSCULAR HGB CONC 33.6 G/dL (31.0-37.0); MEAN CORPUSCULAR VOLUME 87 fL (80-100); MONOCYTES # (AUTO) 0.8 K/uL (0.1-1.0); MONOCYTES % (AUTO) 6.7 % (2.0-9.0); NEUTROPHILS # (AUTO) 9.1 K/uL (1.8-7.7); NEUTROPHILS % (AUTO) 77.5 % (40.0-70.0); PLATELET COUNT (AUTO) 177 K/uL (150-450); RED BLOOD CELL COUNT(AUTO) 4.17 MIL/uL (4.50-5.90); RED CELL DISTRIBUTION WIDTH 13.8 % (11.5-14.5)
[2021-12-11 07:29] LABS: ALANINE AMINOTRANSFERASE 23 U/L (12-78); ALBUMIN 3.1 g/dL (3.4-5.0); ALKALINE PHOSPHATASE 87 U/L (46-116); ANION GAP 9 mmol/L (8-16); ASPARTATE AMINOTRANSFERASE 13 U/L (15-37); BILIRUBIN,TOTAL 0.7 mg/dL (0.1-1.0); CALCIUM, TOTAL 8.7 mg/dL (8.8-10.5); CARBON DIOXIDE 27 mmol/L (22-29); CHLORIDE 106 mmol/L (98-107); CREATININE 1.15 mg/dL (0.60-1.30); GLUCOSE,RANDOM 92 mg/dL (70-110); POTASSIUM 4.1 mmol/L (3.5-5.1); SODIUM SERUM 142 mmol/L (136-145); TOTAL PROTEIN, SERUM 6.5 g/dL (6.4-8.2); UREA NITROGEN, BLOOD 11 mg/dL (7-18)
[2021-12-11 07:30] LABS: GLOMERULAR FILTR. RATE CALC > 60 mL/min (>60)
[2021-12-11] MEDS: HEPARIN SODIUM,PORCINE 5,000 UNITS/ML VIAL SQ SCH ×3 (08:00→23:07)
[2021-12-11 08:22] VITALS: BP 141/72
[2021-12-11] MEDS: NICOTINE 21 MG/24 HOUR PATCH TD SCH (09:00)
[2021-12-11] MEDS: DOCUSATE SODIUM 100 MG CAPSULE PO SCH ×3 (09:00→20:46)
[2021-12-11] MEDS: CloNIDine HCL 0.1 MG TABLET PO SCH (09:30)
[2021-12-11] MEDS: PANTOPRAZOLE SODIUM 40 MG/VIAL IVP SCH (09:31)
[2021-12-11] MEDS: BENZTROPINE MESYLATE 1 MG TABLET PO SCH ×2 (09:32→20:36)
[2021-12-11] MEDS: DIVALPROEX SODIUM 500 MG ER TABLET PO SCH (10:24)
[2021-12-11] MEDS: RisperiDONE 3 MG TABLET PO SCH ×2 (10:24→20:36)
[2021-12-11 12:20] VITALS: BP 127/70
[2021-12-11] MEDS ORDERED: MAGNESIUM SULFATE 4 GM/WATER 100 ML IV PRN (15:15)
[2021-12-11] MEDS ORDERED: MAGNESIUM OXIDE 400 MG TABLET PO PRN (15:15)
[2021-12-11] MEDS ORDERED: POTASSIUM CHLORIDE 20 MEQ ER TABLET PO PRN (15:15)
[2021-12-11] MEDS ORDERED: POTASSIUM CHL 10 MEQ/WATER 50 ML IV PRN (15:15)
[2021-12-11] MEDS ORDERED: MAGNESIUM SULFATE 2 GM/WATER 50 ML IV PRN (15:15)
[2021-12-11] MEDS: FUROSEMIDE 20 MG/2 ML VIAL IVP SCH (15:30)
[2021-12-11 16:10] VITALS: BP 128/73
[2021-12-11] MEDS ORDERED: SODIUM CHLORIDE 0.9% 250 ML IV ONE (17:50)
[2021-12-11] MEDS: CefTRIAXone 1 GM/DEXTROSE 50 ML IV SCH (17:53)
[2021-12-11] MEDS: AZITHROMYCIN 500 MG/NS 250 ML IV SCH (18:26)
[2021-12-11 20:23] VITALS: BP 131/81
[2021-12-11] MEDS: CARVEDILOL 3.125 MG TABLET PO SCH (20:36)
[2021-12-11] MEDS: SACUBITRIL/VALSARTAN 24-26 MG TABLET PO SCH (20:37)
[2021-12-12 00:26] VITALS: BP 138/89
[2021-12-12 04:36] VITALS: BP 129/72
[2021-12-12 07:07] LABS: BASOPHILS % (AUTO) 0.6 % (0.0-2.0); EOSINOPHILS % (AUTO) 2.2 % (1.0-6.0); HEMATOCRIT 39.4 % (41-53); HEMOGLOBIN 13.2 g/dL (13.5-17.5); LYMPHOCYTES % (AUTO) 20.6 % (22.0-44.0); MEAN CORPUSCULAR HEMOGLOBIN 29.3 pg (26.0-34.0); MEAN CORPUSCULAR HGB CONC 33.6 G/dL (31.0-37.0); MEAN CORPUSCULAR VOLUME 87 fL (80-100); MONOCYTES # (AUTO) 0.7 K/uL (0.1-1.0); MONOCYTES % (AUTO) 6.8 % (2.0-9.0); NEUTROPHILS # (AUTO) 6.9 K/uL (1.8-7.7); NEUTROPHILS % (AUTO) 69.8 % (40.0-70.0); PLATELET COUNT (AUTO) 192 K/uL (150-450); RED BLOOD CELL COUNT(AUTO) 4.52 MIL/uL (4.50-5.90)
[2021-12-12 07:24] LABS: ALANINE AMINOTRANSFERASE 21 U/L (12-78); ALKALINE PHOSPHATASE 72 U/L (46-116); ANION GAP 3 mmol/L (8-16); ASPARTATE AMINOTRANSFERASE 15 U/L (15-37); BILIRUBIN,TOTAL 0.5 mg/dL (0.1-1.0); CALCIUM, TOTAL 8.7 mg/dL (8.8-10.5); CARBON DIOXIDE 30 mmol/L (22-29); CHLORIDE 105 mmol/L (98-107); CREATININE 0.97 mg/dL (0.60-1.30); GLUCOSE,RANDOM 87 mg/dL (70-110); POTASSIUM 4.6 mmol/L (3.5-5.1); SODIUM SERUM 138 mmol/L (136-145); TOTAL PROTEIN, SERUM 6.6 g/dL (6.4-8.2); UREA NITROGEN, BLOOD 7 mg/dL (7-18)
[2021-12-12 07:28] LABS: GLOMERULAR FILTR. RATE CALC > 60 mL/min (>60)
[2021-12-12 07:52] LABS: B-TYPE NATRIURETIC PEPTIDE 323 pg/mL (0-100)
[2021-12-12 08:30] VITALS: BP 134/88
[2021-12-12 12:00] VITALS: BP 139/99
[2021-12-12] MEDS: RisperiDONE 3 MG TABLET PO SCH (12:25)
[2021-12-12] MEDS: SACUBITRIL/VALSARTAN 24-26 MG TABLET PO SCH (12:25)
[2021-12-12] MEDS: BENZTROPINE MESYLATE 1 MG TABLET PO SCH (12:25)
[2021-12-12] MEDS: DIVALPROEX SODIUM 500 MG ER TABLET PO SCH (12:26)
[2021-12-12] MEDS: CARVEDILOL 3.125 MG TABLET PO SCH (12:26)
[2021-12-12] MEDS: FUROSEMIDE 20 MG/2 ML VIAL IVP SCH (12:44)
[2021-12-12] MEDS: HEPARIN SODIUM,PORCINE 5,000 UNITS/ML VIAL SQ SCH (12:44)
[2021-12-12] MEDS: PANTOPRAZOLE SODIUM 40 MG/VIAL IVP SCH (12:45)
[2021-12-12] MEDS: NICOTINE 21 MG/24 HOUR PATCH TD SCH (12:45)
[2021-12-13] MEDS ORDERED: FUROSEMIDE 20 MG TABLET PO SCH (09:00)
== END 2021-12-12 15:25 | disposition left against medical advice (07) | DRG 193 ==
LOC: EMS 02:26 → 5S 22:09
PROVIDERS: ADMIT Hospitalist; ATTEND Hospitalist
DX: J18.9 Pneumonia, unspecified organism (principal); I50.23 Acute on chronic systolic (congestive) heart failure; I42.9 Cardiomyopathy, unspecified; R07.89 Other chest pain; F17.210 Nicotine dependence, cigarettes, uncomplicated; F25.9 Schizoaffective disorder, unspecified; F31.9 Bipolar disorder, unspecified; I34.0 Nonrheumatic mitral (valve) insufficiency; F25.1 Schizoaffective disorder, depressive type; I49.3 Ventricular premature depolarization; J45.909 Unspecified asthma, uncomplicated; Z20.822 Contact with and (suspected) exposure to COVID-19; Z53.20 Procedure and treatment not carried out because of patient's decision for unspecified reasons; Z91.14 Patient's other noncompliance with medication regimen; Z71.6 Tobacco abuse counseling
CPT/HCPCS: 36600; 71045; 80053; 82805; 83735; 83880; 84100; 84484; 85025; 93005; 93306; 94640; 94660; 99285; C9113; G0480; J0456; J0696; J1644; J1940; J2270; J2405; J7050; Q9967; 36415-L1; 36415-TC; J7613

== ENCOUNTER 2022-01-17 04:03 | Emergency (ER) | payer MEDICARE, MEDICAID ==
[~2022-01-17] VITALS: Ht 175.3 cm; Wt 104.5 kg
[2022-01-17 06:40] LABS: BASOPHILS % (AUTO) 1.2 % (0.0-2.0); EOSINOPHILS % (AUTO) 1.7 % (1.0-6.0); HEMATOCRIT 40.8 % (41-53); HEMOGLOBIN 13.6 g/dL (13.5-17.5); LYMPHOCYTES # (AUTO) 1.6 K/uL (1.0-4.8); MEAN CORPUSCULAR HEMOGLOBIN 28.8 pg (26.0-34.0); MEAN CORPUSCULAR HGB CONC 33.2 G/dL (31.0-37.0); MEAN CORPUSCULAR VOLUME 87 fL (80-100); MONOCYTES # (AUTO) 0.5 K/uL (0.1-1.0); MONOCYTES % (AUTO) 7.4 % (2.0-9.0); NEUTROPHILS # (AUTO) 4.7 K/uL (1.8-7.7); NEUTROPHILS % (AUTO) 66.7 % (40.0-70.0); PLATELET COUNT (AUTO) 224 K/uL (150-450); RED BLOOD CELL COUNT(AUTO) 4.71 MIL/uL (4.50-5.90); RED CELL DISTRIBUTION WIDTH 14.1 % (11.5-14.5)
[2022-01-17 06:48] LABS: COVID AG,FIA SOURCE NASOPHARYNGEAL
[2022-01-17 07:02] LABS: AMPHET/METH SCREEN,URINE NEGATIVE (NEGATIVE); BARBITURATE SCREEN, URINE NEGATIVE (NEGATIVE); BENZODIAZEPINES SCREEN,URINE NEGATIVE (NEGATIVE); CANNABINOID SCREEN,URINE NEGATIVE (NEGATIVE); COCAINE SCREEN,URINE NEGATIVE (NEGATIVE); METHADONE SCREEN, URINE NEGATIVE (NEGATIVE); OPIATE SCREEN,URINE NEGATIVE (NEGATIVE)
[2022-01-17 07:03] LABS: PHENCYCLIDINE SCREEN,URINE NEGATIVE (NEGATIVE)
[2022-01-17 07:08] LABS: ANION GAP 5 mmol/L (8-16); CALCIUM, TOTAL 8.8 mg/dL (8.8-10.5); CARBON DIOXIDE 29 mmol/L (22-29); CHLORIDE 106 mmol/L (98-107); CREATININE 1.02 mg/dL (0.60-1.30); GLUCOSE,RANDOM 102 mg/dL (70-110); POTASSIUM 3.7 mmol/L (3.5-5.1); SODIUM SERUM 140 mmol/L (136-145); UREA NITROGEN, BLOOD 4 mg/dL (7-18)
[2022-01-17 07:09] LABS: GLOMERULAR FILTR. RATE CALC > 60 mL/min (>60)
[2022-01-17 07:13] LABS: ALANINE AMINOTRANSFERASE 20 U/L (12-78); ALBUMIN 3.7 g/dL (3.4-5.0); ALKALINE PHOSPHATASE 83 U/L (46-116); ASPARTATE AMINOTRANSFERASE 11 U/L (15-37); BILIRUBIN,TOTAL 0.3 mg/dL (0.1-1.0)
[2022-01-17 07:14] LABS: INFLUENZA TYPE A NEGATIVE FOR TYPE A (NEGATIVE); INFLUENZA TYPE B NEGATIVE FOR TYPE B (NEGATIVE)
[2022-01-17] MEDS: LORazepam 1 MG TABLET PO ONE (07:19)
[2022-01-17] MEDS: RisperiDONE 1 MG TABLET PO ONE (07:19)
[2022-01-17 08:41] VITALS: BP 142/90
== END 2022-01-17 08:42 | disposition home or self-care (01) ==
LOC: EMS 04:04
DX: F25.9 Schizoaffective disorder, unspecified (principal); F31.9 Bipolar disorder, unspecified; R07.89 Other chest pain; J06.9 Acute upper respiratory infection, unspecified; F41.9 Anxiety disorder, unspecified; F17.210 Nicotine dependence, cigarettes, uncomplicated; J45.909 Unspecified asthma, uncomplicated; Z20.822 Contact with and (suspected) exposure to COVID-19
CPT/HCPCS: 99285; 71045; 87426; 80053; 84484; 85025; 87804; 36415; 93005; 80307; G0480

== ENCOUNTER 2022-01-18 03:25 | Emergency (ER) | payer MEDICARE, MEDICAID | END 2022-01-18 05:47 | disposition left against medical advice (07) | LOC: EMS 03:36 | DX: Z53.21 Procedure and treatment not carried out due to patient leaving prior to being seen by health care provider (principal) ==

== ENCOUNTER 2022-12-22 07:01 | Emergency (ER) | payer MEDICARE, MEDICAID ==
[2022-12-22] MEDS ORDERED: RISP3TAB35 PO (12:46)
[2022-12-22] MEDS ORDERED: VALP250S27 PO (12:46)
[2022-12-22] MEDS ORDERED: BENZ1TAB84 PO (12:46)
[2022-12-22] MEDS ORDERED: CLON0.2T PO (12:46)
[2022-12-22] MEDS ORDERED: OLAN20TA35 PO (12:46)
== END 2022-12-22 07:13 | disposition left against medical advice (07) ==
LOC: EMS 07:05
DX: Z53.21 Procedure and treatment not carried out due to patient leaving prior to being seen by health care provider (principal)

== ENCOUNTER 2022-12-22 11:57 | Emergency (ER) | payer MEDICARE, MEDICAID ==
[~2022-12-22] VITALS: Ht 172.7 cm; Wt 90.9 kg
[2022-12-22 11:59] VITALS: TEMP 98.1
[2022-12-22] MEDS ORDERED: ALBUTEROL SULFATE HFA 90 MCG/PUFF 8 GM INHALER IH ONE (12:45)
[2022-12-22] MEDS ORDERED: BENZ1TAB84 PO (12:46)
[2022-12-22] MEDS ORDERED: OLAN20TA35 PO (12:46)
[2022-12-22] MEDS ORDERED: CLON0.2T PO (12:46)
[2022-12-22] MEDS ORDERED: VALP250S27 PO (12:46)
[2022-12-22] MEDS ORDERED: RISP3TAB35 PO (12:46)
[2022-12-22 14:47] LABS: COVID AG,FIA SOURCE NASAL SWAB
[2022-12-22 15:22] LABS: SARS-COV2 (COVID) ANTIGEN,FIA Negative (Negative)
[2022-12-22 15:25] LABS: INFLUENZA TYPE A NEGATIVE FOR TYPE A (NEGATIVE); INFLUENZA TYPE B NEGATIVE FOR TYPE B (NEGATIVE)
[2022-12-22 15:45] VITALS: BP 140/90; PULSE 88; RESP 14
== END 2022-12-22 15:54 | disposition home or self-care (01) ==
LOC: EMS 12:49
DX: J06.9 Acute upper respiratory infection, unspecified (principal); J45.909 Unspecified asthma, uncomplicated; F17.210 Nicotine dependence, cigarettes, uncomplicated; Z20.822 Contact with and (suspected) exposure to COVID-19
CPT/HCPCS: 99284; 71045; 87426; 87804; 94640; J3535